=== PATIENT | female | born 1970 | race African-American/Black ===

== ENCOUNTER 2017-04-23 09:51 | Emergency (ER) | payer BC, OTHER ==
[~2017-04-23] VITALS: Ht 175.3 cm; Wt 83.9 kg
[~2017-04-23 09:51] MED LIST: CARV25TA PO; CARV6.252 PO; LISI2.5T PO; TAMO20TA PO
--- NOTE | 2017-04-23 11:26 | RAD ---
2 view chest 04/23/2017 Clinical indication: Cough and fever. Comparison: Chest 11/04/2012. Findings: Mild patchy opacities in the left lower lobe. Cardiac and mediastinal silhouettes are unremarkable. No pleural effusion or pneumothorax. There are bilateral scattered thoracic surgical clips. Impression: Left lower lobe patchy opacities, suggestive of pneumonia. Follow-up 2 view chest to assess for resolution is recommended.
[2017-04-23 11:30] LABS: INFLUENZA A PATIENT NEGATIVE (NEGATIVE); INFLUENZA B PATIENT NEGATIVE (NEGATIVE)
[2017-04-23] MEDS ORDERED: FLUT9.9S NS (11:36)
[2017-04-23] MEDS ORDERED: FLUT12AE IH (11:36)
[2017-04-23] MEDS ORDERED: SULF1TAB24 PO (11:36)
[2017-04-23] MEDS ORDERED: ALBU8.5H8 INH (11:36)
[2017-04-23 11:37] VITALS: BP 165/96
--- NOTE | 2017-04-23 11:37 | PHYS DOC ---
Past History Past Medical History: Cancer, Heart Disease, Hypertension Past Surgical History: Other Smoking: Non-smoker Alcohol Use: Occasionally Drug Use: None Adult General Chief Complaint Chief Complaint: COUGH HPI HPI Patient is a 46 year old F who presents with cough, nasal congestion and shortness of breath over the past 3-4 days. She feels that her symptoms are worse with activity and improved with relative rest. She also states that she has generalized body aches and chills. She feels that she has had a fever however she has not taken it at home. She has no other associated symptoms at this time and no other exacerbating or alleviating factors. Review of Systems Review of Systems Constitutional: Negative except history of present illness Eyes: Denies change in visual acuity, redness, or eye pain [] HENT: Negative except history of present illness Respiratory: Negative except in history of present illness Cardiovascular: No additional information not addressed in HPI [] GI: Denies abdominal pain, nausea, vomiting, bloody stools or diarrhea [] : Denies dysuria or hematuria [] Musculoskeletal: Denies back pain or joint pain [] Integument: Denies rash or skin lesions [] Neurologic: Denies headache, focal weakness or sensory changes [] Endocrine: Denies polyuria or polydipsia [] All other systems were reviewed and found to be within normal limits, except as documented in this note. Family History Family History No pertinent family medical history was reported Current Medications Current Medications Current medications were reviewed Current Medications Medications (Trade) Dose Ordered Sig/Camille Start Time Stop Time Status Last Admin Dose Admin Albuterol Sulfate (Ventolin) 10 mg 1X ONCE 04/23/17 11:40 04/23/17 11:41 04/23/17 11:21 2.5 MG Budesonide (Pulmicort) 0.5 mg 1X ONCE 04/23/17 11:40 04/23/17 11:41 04/23/17 11:21 0.5 MG Allergies Allergies Allergies Coded Allergies Type Severity Reaction Last Updated Verified latex Allergy Intermediate 12/05/13 Yes vancomycin Allergy Intermediate 12/05/13 Yes Penicillins Allergy Unknown 04/23/17 Yes Physical Exam Physical Exam Constitutional: Well developed, well nourished, no acute distress, non-toxic appearance. [] Ill-appearing HENT: Normocephalic, atraumatic, mild to moderate nasal mucosa erythema and edema Eyes: EOMI, conjunctiva normal, no discharge. [] Neck: Normal range of motion, no tenderness, supple, no stridor. [] Cardiovascular:Heart rate regular rhythm, no murmur [] Lungs & Thorax: Bilateral breath sounds clear to auscultation [] rhonchi noted in the left bases Abdomen: Bowel sounds normal, soft, no tenderness, no masses, no pulsatile masses. [] Skin: Warm, dry, no erythema, no rash. [] Extremities: No tenderness, no cyanosis, no clubbing, ROM intact, no edema. [] Neurologic: Alert and oriented X 3, normal motor function, normal sensory function, no focal deficits noted. [] Psychologic: Affect normal, judgement normal, mood normal. [] Current Patient Data Vital Signs Vital Signs Date Time Temp Pulse Resp B/P (MAP) Pulse Ox O2 Delivery O2 Flow Rate FiO2 04/23/17 09:57 99.0 93 20 97 Room Air Lab Results Laboratory Tests Test 04/23/17 10:50 Influenza Type A (Rapid) Negative (NEGATIVE) Influenza Type B (Rapid) Negative (NEGATIVE) EKG EKG [] Radiology/Procedures Radiology/Procedures Chest x-ray Impressions: Left lower lobe infiltrate Course & Med Decision Making Course & Med Decision Making Pertinent Labs and Imaging studies reviewed. (See chart for details) [] Dragon Disclaimer Dragon Disclaimer This electronic medical record was generated, in whole or in part, using a voice recognition dictation system. Departure Departure: Impression: Primary Impression: Acute upper respiratory infection Additional Impression: Pneumonia Disposition: 01 HOME, SELF-CARE Condition: STABLE Referrals: CULLEN BATES MD (PCP) Patient Instructions: Pneumonia, Adult, Upper Respiratory Infection, Adult Additional Instructions: Jaida was seen in the emergency department for cough and nasal congestion. No emergency medical condition was found on history or physical exam. She was found to have signs and symptoms of pneumonia as well as an upper respiratory infection. She was given a prescription for oral antibiotics as well as breathing treatments. She is advised to use nasal saline rinses regularly and was given a prescription for nasal steroid spray She is advised follow-up with her primary care doctor in the next 3-5 days for further management. Scripts Fluticasone Propionate (FLOVENT 110MCG HFA) 12 Gm Aer.w.adap 2 PUFF IH BID for 7 Days, #1 INHALER 2 Refills Prov: CULLEN SANTANA MD 04/23/17 Fluticasone Propionate (Flonase Allergy Relief) 9.9 Ml Kite.susp 1 SPRAYS NS BID for 7 Days, BOTTLE Prov: CULLEN SANTANA MD 04/23/17 Sulfamethoxazole/Trimethoprim (BACTRIM DS TABLET) 1 Each Tablet 1 TAB PO BID for 7 Days, #14 TAB Prov: CULLEN SANTANA MD 04/23/17 Albuterol Sulfate (PROAIR HFA INHALER) 8.5 Gm Hfa.aer.ad 1 PUFF INH PRN Q6HRS Y for SHORTNESS OF BREATH for 7 Days, INHALER 0 Refills Prov: CULLEN SANTANA MD 04/23/17 Problem Qualifiers Additional Impression: Pneumonia Pneumonia type: due to methicillin-sensitive Staphylococcus aureus (MSSA) Laterality: left Lung location: lower lobe of lung Qualified Codes: J15.211 - Pneumonia due to methicillin susceptible Staphylococcus aureus CULLEN SANTANA MD Apr 23, 2017 11:37
[2017-04-23] MEDS ORDERED: BUDESONIDE 0.5 MG/2 ML NEBU NEB ONE (11:40)
[2017-04-23] MEDS ORDERED: ALBUTEROL SULFATE 2.5 MG/3 ML NEBU. CONT NEB ONE (11:40)
[2017-04-23] MEDS ORDERED: SMZ/TMP 800/160MG TABLET. PO ONE (12:10)
== END 2017-04-23 11:56 | disposition home or self-care (01) ==
LOC: ER 09:51
DX: J18.9 Pneumonia, unspecified organism (principal); J06.9 Acute upper respiratory infection, unspecified; I11.9 Hypertensive heart disease without heart failure; Z88.0 Allergy status to penicillin; Z88.1 Allergy status to other antibiotic agents; Z91.040 Latex allergy status
CPT/HCPCS: 71046; 87804; 94640; 99285; J7613; J7626

== ENCOUNTER 2021-02-09 18:24 | Emergency (ER) | payer BC ==
[~2021-02-09] VITALS: Ht 175.3 cm; Wt 107.5 kg
[~2021-02-09 18:24] MED LIST changes: +ALBU2.5V8 INH; -CARV6.252 PO; +CARV6.2541 PO; +FLUT12AE IH; +FLUT9.9S NS; -LISI2.5T PO; +LISI2.5T12 PO; +SULF1TAB24 PO
[2021-02-09] MEDS ORDERED: IV NORMAL SALINE 1,000ML 1,000 ML IV ONE (18:45)
[2021-02-09] MEDS ORDERED: IOHEXOL 350 MG/ML 100 ML VIAL. IV ONE (19:00)
--- NOTE | 2021-02-09 19:29 | PHYS DOC ---
Past History Past Medical History: Cancer, Heart Disease, Hypertension Past Surgical History: Hysterectomy, Oophorectomy, Other Additional Past Surgical Histo: BILAT MASTECTOMY 2012 Smoking: Non-smoker Alcohol Use: Occasionally Drug Use: None General Adult EDM: Chief Complaint: SHORTNESS OF BREATH HPI: HPI: Patient is a [age] year old [sex] who presents with [] Review of Systems: Review of Systems: Constitutional: Denies fever or chills Eyes: Denies redness or eye pain HENT: Denies nasal congestion or sore throat Respiratory: Denies cough or shortness of breath Cardiovascular: Denies chest pain or palpitations GI: Denies abdominal pain, nausea, or vomiting : Denies dysuria or hematuria Musculoskeletal: Denies back pain or joint pain Integument: Denies rash or skin lesions Neurologic: Denies headache, focal weakness or sensory changes Complete systems were reviewed and found to be within normal limits, except as documented in this note. Current Medications: Current Meds: Current Medications Medications (Trade) Dose Ordered Sig/Camille Start Time Stop Time Status Last Admin Dose Admin Iohexol (Omnipaque 350 Mg/ml) 100 ml 1X ONCE 02/09/21 19:00 02/09/21 19:01 DC Sodium Chloride 1,000 ml @ 1,000 mls/hr 1X ONCE 02/09/21 18:45 02/09/21 19:44 Allergies: Allergies: Allergies Coded Allergies Type Severity Reaction Last Updated Verified latex Allergy Intermediate 02/09/21 Yes vancomycin Allergy Intermediate 02/09/21 Yes Penicillins Allergy Unknown 02/09/21 Yes Physical Exam: PE: Constitutional: Well developed, well nourished, no acute distress, non-toxic appearance HENT: Normocephalic, atraumatic Eyes: PERRL, EOMI, conjunctiva normal, no discharge Neck: Normal range of motion, no tenderness, supple Lungs & Thorax: No respiratory distress, equal chest rise and fall Abdomen: Soft, no tenderness Skin: Warm, dry, no erythema, no rash Back: No tenderness, no CVA tenderness Extremities: No tenderness, ROM intact, no edema Neurologic: Alert and oriented X 3, normal motor function, normal sensory function, no focal deficits noted Psychologic: Affect normal, judgment normal Current Patient Data: Vital Signs: Vital Signs Date Time Temp Pulse Resp B/P (MAP) Pulse Ox O2 Delivery O2 Flow Rate FiO2 02/09/21 18:37 98.4 81 22 143/100 (114) 97 Room Air EKG: EKG: @1851 NSR at 79bpm, NO ST elevation, QRS 106ms, QT/QTc 416/478ms, baseline artifact noted primarily to V4, nonspecific t wave inversion III Radiology/Procedures: Radiology/Procedures: PROCEDURE: CT ANGIOGRAPHY CHEST Exam: CT of chest with contrast INDICATION: Short of air, TECHNIQUE: Sequential axial images through the chest obtained following the a dministration of 100 mL of Isovue-370 IV contrast. Sagittal and coronal reformatted images were reconstructed from the axial data and reviewed. 3-D reformatted images were reconstructed from the axial data and reviewed. Exposure: One or more of the following in the visualized dose reduction techniques were utilized for this examination: 1. Automated exposure control 2. Adjustment of the MA and/or KV according to patient size 3. Use of iterative of reconstructive technique Comparisons: Chest x-ray same day FINDINGS: Visualized portions of the thyroid are unremarkable. There numerous prominent mildly enlarged bilateral hilar, pretracheal, prevascular lymph nodes. Heart size is normal. No pericardial effusion. Thoracic aorta has normal course and caliber. Pulmonary artery is not enlarged. No pulmonary embolus identified within the main, lobar or segmental pulmonary arteries. Airways are patent. Innumerable pulmonary nodules are noted diffusely throughout the lungs. No consolidation or pneumothorax. Moderate-sized right pleural effusion. There are several vague hypoattenuating lesions noted within the liver which are incompletely characterized on this study. Trace amount of free fluid in the visualized upper abdomen. No suspicious osseous lesions or acute fractures. IMPRESSION: 1. No pulmonary embolus identified within the main, lobar or segmental pulmonary arteries. 2. Innumerable pulmonary nodules likely representing diffuse metastatic disease. Correlate with malignancy history. 3. Moderate-sized right pleural effusion. Electronically signed by: Delisa Raza MD (02/09/2021 8:10 PM) [facility] Heart Score: C/O Chest Pain: N/A Course & Med Decision Making: Course & Med Decision Making Pertinent Labs and Imaging studies reviewed. (See chart for details) Patient stable for discharge with outpatient follow-up with PCP. Discussed findings and plan with patient, who acknowledges understanding and agreement. Vivian Disclaimer: Vivian Disclaimer: This electronic medical record was generated, in whole or in part, using a voice recognition dictation system. Departure Departure: Impression: Primary Impression: Shortness of breath Additional Impressions: Pleural effusion Pulmonary nodules Disposition: HOME / SELF CARE / HOMELESS Condition: STABLE Referrals: CULLEN BATES MD (PCP) Patient Instructions: Pleural Effusion, Pulmonary Nodule, [id number], Shortness of Breath, [id number] Additional Instructions: Please follow up with your doctor and/or oncology for further management/treatment. JENNIFER SOSA DO Feb 09, 2021 19:29
[2021-02-09 19:49] LABS: CALCIUM 9.2 mg/dL (8.5-10.1); CREATININE 0.8 mg/dL (0.6-1.0); GFR 91.5; POTASSIUM 3.6 mmol/L (3.5-5.1)
[2021-02-09 19:50] LABS: BASO % 1 % (0-3); EOS # 0.1 x10^3/uL (0.0-0.7); EOS % 2 % (0-3); HEMATOCRIT 36.3 % (36.0-47.0); HEMOGLOBIN 11.8 g/dL (12.0-15.5); LYMPH # 2.2 x10^3/uL (1.0-4.8); LYMPH % 36 % (24-48); MEAN CORPUSCULAR HEMOGLOBIN 28 pg (25-35); MEAN CORPUSCULAR HGB CONC 33 g/dL (31-37); MEAN CORPUSCULAR VOLUME 87 fL (79-100); MONO # 0.6 x10^3/uL (0.0-1.1); MONO % 9 % (0-9); NEUT # 3.3 x10^3uL (1.8-7.7); NEUT % 53 % (31-73); PLATELET COUNT 247 x10^3/uL (140-400); RED CELL DISTRIBUTION WIDTH 14.5 % (11.5-14.5); WHITE BLOOD COUNT 6.3 x10^3/uL (4.0-11.0)
[2021-02-09 20:06] LABS: ALBUMIN 3.4 g/dL (3.4-5.0); ALBUMIN/GLOBULIN RATIO 0.8 (1.0-1.7); TOTAL BILIRUBIN 0.3 mg/dL (0.2-1.0); TOTAL PROTEIN 7.8 g/dL (6.4-8.2)
--- NOTE | 2021-02-09 20:12 | RAD ---
Exam: CT of chest with contrast INDICATION: Short of air, TECHNIQUE: Sequential axial images through the chest obtained following the administration of 100 mL of Isovue-370 IV contrast. Sagittal and coronal reformatted images were reconstructed from the axial data and reviewed. 3-D reformatted images were reconstructed from the axial data and reviewed. Exposure: One or more of the following in the visualized dose reduction techniques were utilized for this examination: 1. Automated exposure control 2. Adjustment of the MA and/or KV according to patient size 3. Use of iterative of reconstructive technique Comparisons: Chest x-ray same day FINDINGS: Visualized portions of the thyroid are unremarkable. There numerous prominent mildly enlarged bilater al hilar, pretracheal, prevascular lymph nodes. Heart size is normal. No pericardial effusion. Thoracic aorta has normal course and caliber. Pulmonar y artery is not enlarged. No pulmonary embolus identified within the main, lobar or segmental pulmona ry arteries. Airways are patent. Innumerable pulmonary nodules are noted diffusely throughout the lungs. No consol idation or pneumothorax. Moderate-sized right pleural effusion. There are several vague hypoattenuating lesions noted within the liver which are incompletely charact erized on this study. Trace amount of free fluid in the visualized upper abdomen. No suspicious osseous lesions or acute fractures. IMPRESSION: 1. No pulmonary embolus identified within the main, lobar or segmental pulmonary arteries. 2. Innumerable pulmonary nodules likely representing diffuse metastatic disease. Correlate with kathleen gnancy history. 3. Moderate-sized right pleural effusion. Electronically signed by: Delisa Raza MD (02/09/2021 8:10 PM) [facility]
[2021-02-09 20:35] LABS: BILIRUBIN,URINE NEG (NEG); CLARITY,URINE CLEAR; COLOR,URINE YELLOW; GLUCOSE,URINE NEG (NEG); NITRITE,URINE NEG (NEG); UROBILINOGEN,URINE 0.2 mg/dL (0.2 mg/dL)
[2021-02-09 20:36] LABS: BACTERIA,URINE 0 /HPF (0-FEW); RBC,URINE OCC /HPF (0-2); SQUAMOUS EPITHELIAL CELL,UR OCC /LPF; WBC,URINE OCC /HPF (0-4)
[2021-02-09 21:15] VITALS: BP 132/81
--- NOTE | 2021-02-10 04:28 | EKG ---
[address] [address] Test Date: 2021-02-09 Test Time: 18:51:01 Pat Name: ADA ANTHONY Department: Room: Gender: F Bilingual Medical Assistant: MARLENA : 1970 Requested By: JENNIFER SOSA Order Number: [id number] Reading MD: Saurabh Rudd Measurements Intervals [place] Rate: 79 P: -54 RI: 112 QRS: -24 QRSD: 106 T: 0 QT: 416 QTc: 478 Interpretive Statements SINUS RHYTHM LEFTWARD AXIS PROLONGED QT RI6.02 No previous ECG available for comparison Electronically Signed On 02-14-2021 10:06:35 [employer] by Saurabh Rudd
== END 2021-02-09 21:18 | disposition home or self-care (01) ==
LOC: ER 18:24
DX: J90 Pleural effusion, not elsewhere classified (principal); R91.8 Other nonspecific abnormal finding of lung field; R06.02 Shortness of breath; I11.9 Hypertensive heart disease without heart failure; Z20.822 Contact with and (suspected) exposure to COVID-19; Z91.040 Latex allergy status; Z88.1 Allergy status to other antibiotic agents; Z88.0 Allergy status to penicillin
CPT/HCPCS: 71275; 80053; 81001; 82553; 83605; 83880; 84484; 85025; 87426; 93005; 96360; 99285; C9803; J7030; Q9967; U0003

== ENCOUNTER 2021-06-18 19:25 | Emergency (ER) | payer BC ==
[~2021-06-18] VITALS: Ht 175.3 cm; Wt 107.5 kg
[2021-06-18] MEDS ORDERED: ONDANSETRON PF 4 MG/2 ML VIAL. ONE (19:49)
--- NOTE | 2021-06-18 19:50 | PHYS DOC ---
Past History Past Medical History: Cancer, Heart Disease, Hypertension (SOCORRO BOWENS APRN) Past Surgical History: Hysterectomy, Oophorectomy, Other Additional Past Surgical Histo: BILAT MASTECTOMY 2013 (SOCORRO BOWENS APRN) Smoking: Non-smoker Alcohol Use: Occasionally Drug Use: None (SOCORRO BOWENS APRN) General Adult EDM: Chief Complaint: NAUSEA/VOMITING/DIARRHEA HPI: HPI: Patient is a 51-year-old female who presents with nausea/vomiting/diarrhea for the last 2 weeks. Patient is currently being treated for uterine cancer. Patient's last chemo treatment was 2 weeks ago and she started a new drug. Patient reports that the nausea is worse at nighttime. "Every time I lay down I start getting sick to my stomach". Afebrile. Denies pain. History of hypertension, hyperlipidemia. (SOCORRO BOWENS APRN) Review of Systems: Review of Systems: ROS At least 10 ROS systems have been reviewed and are negative except as documented in the HPI. General: Negative except as outlined in HPI above. Skin: Negative except as outlined in HPI above. HEENT: Negative except as outlined in HPI above. Neck: Negative except as outlined in HPI above. Respiratory: Negative except as outlined in HPI above.. Cardiovascular: Negative except as outlined in HPI above. Abdomen: Negative except as outlined in HPI above. : Negative except as outlined in HPI above. Back/MSK: Negative except as outlined in HPI above. Neuro: Negative except as outlined in HPI above. Psych: Negative except as outlined in HPI above. (SOCORRO BOWENS APRN) Allergies: Allergies: Allergies Coded Allergies Type Severity Reaction Last Updated Verified latex Allergy Intermediate 02/09/21 Yes vancomycin Allergy Intermediate 02/09/21 Yes Penicillins Allergy Unknown 02/09/21 Yes (SOCORRO BOWENS APRN) Physical Exam: PE: Constitutional: Well developed, well nourished, no acute distress HENT: bilateral external ears normal, oropharynx moist, no oral exudates Eyes: PERRLA, conjunctiva normal, no discharge. [] Neck: Normal range of motion, no tenderness, supple Cardiovascular:Heart rate regular rhythm, no murmur [] Lungs & Thorax: Bilateral breath sounds clear to auscultation [] Abdomen: Bowel sounds normal, soft, no tenderness Skin: Warm, dry, no erythema, no rash. [] Back: No tenderness, no CVA tenderness. [] Extremities: No tenderness, range of motion is intact, no edema Neurologic: Alert and oriented X 3, normal motor function, normal sensory function Psychologic: Affect normal, judgement normal, mood normal. [] (SOCORRO BOWENS APRN) EKG: EKG: [] (SOCORRO BOWENS APRN) Radiology/Procedures: Radiology/Procedures: [] (SOCORRO BOWENS APRN) Heart Score: C/O Chest Pain: No Risk Factors: Risk Factors: DM, Current or recent (<one month) smoker, HTN, HLP, family history of CAD, obesity. Risk Scores: Score 0 - 3: 2.5% MACE over next 6 weeks - Discharge Home Score 4 - 6: 20.3% MACE over next 6 weeks - Admit for Clinical Observation Score 7 - 10: 72.7% MACE over next 6 weeks - Early Invasive Strategies (SOCORRO BOWENS APRN) Course & Med Decision Making: Course & Med Decision Making Pertinent Labs and Imaging studies reviewed. (See chart for details) [] 51-year-old female presents with nausea/vomiting/diarrhea for the last 2 weeks. Patient started a new chemo drug for uterine cancer 2 weeks ago and has made her very nauseated. Work-up in ER consisted of labs, UA. Patient given NS bolus to help with hydration. Zofran given for nausea and vomiting. Patient's denying pain. WBC, 2.5. All other labs are unremarkable. Patient's nausea and vomiting is due to chemo treatments. Patient still re porting nausea. Patient given Compazine. Patient is concerned about being nauseated at home. Sending patient home with a starter pack of Zofran and a prescription to [facility] that they will build to draft roller picker tomorrow. Advised patient to call her physician again tomorrow and find out if there are alternate medications available to treat her symptoms. Discussed return precautions in l brianne. Patient verbalized understanding of discharge instructions. (SOCORRO BOWENS APRN) Vivian Disclaimer: Vivian Disclaimer: This electronic medical record was generated, in whole or in part, using a voice recognition dictation system. (SOCORRO BOWENS APRN) Departure Departure: Impression: Primary Impression: Nausea vomiting and diarrhea Disposition: HOME / SELF CARE / HOMELESS Condition: STABLE Referrals: CULLEN BATES MD (PCP) Patient Instructions: Nausea and Vomiting, [id number] Additional Instructions: You are seen in the emergency room for nausea and vomiting. You were given Zofran, fluids. All of your labs were EMERGENCY DEPARTMENT GENERAL DISCHARGE INSTRUCTIONS Thank you for coming to [facility] (ED) today and trusting us with you care. We trust that you had a positivie experience in our Emergency Department. If you wish to speak to the department management, you may call the director at [phone]. YOUR FOLLOW UP INSTRUCTIONS ARE FOLLOWS: 1. Do you have a private Doctor? If you do not have a private doctor, please ask for a resource list of physicians or clinics that may be able to assist you with follow up care. 2. The Emergency Physician has interpreted your x-rays. The X-Ray specialist will also review them. If there is a change in the findings, you will be notified in 48 hours when at all possible. 3. A lab test or culture has been done, your results will be reviewed and you will be notified if you need a change in treatment. ADDITIONAL INSTRUCTIONS AND INFORMATION: 1. Your care today has been supervised by a physician who is specially trained in emergency care. Many problems require more than one evaluation for a complete diagnosis and treatment. We recommend that you schedule your follow up appointment as recommended to ensure complete treatment of you illness or injury. If you are unable to obtain follow up care and continue to have a problem, or if your condition worsens, we recommend that you return to the ED. 2. We are not able to safely determine your condition over the phone nor are we able to give sound medical advice over the phone. For these safety reasons, if you call for medical advice we will ask you to come to the ED for further evaluation. 3. If you have any questions regarding these discharge instructions please call the ED at [phone]. SAFETY INFORMATION: In the interest of safety, wellness, and injury prevention; we encourage you to wear your sealbelt, if you smoke; quite smoking, and we encourage family to use a p rotective helmet for bicycling and other sporting events that present an increased risk for head injury. IF YOUR SYMPTOMS WORSEN OR NEW SYMPTOMS DEVELOP, OR YOU HAVE CONCERNS ABOUT YOUR CONDITION; OR IF YOUR CONDITION WORSENS WHILE YOU ARE WAITING FOR YOUR FOLLOW UP APPOINTMENT; EITHER CONTACT YOUR PRIMARY CARE DOCTOR, THE PHYSICIAN WHOSE NAME AND NUMBER YOU WERE GIVEN, OR RETURN TO THE ED IMMEDIATELY. Scripts Prochlorperazine Maleate (Compazine) 10 Mg Tablet 1 TAB PO Q6HRS for nausea for 7 Days, #28 TAB 0 Refills Prov: KWANSOCORRO HEWITT 06/18/21 Promethazine Hcl (PROMETHAZINE HCL) 25 Mg Supp.rect 2-Apr SUPP RC QID for nausea for 3 Days, #20 SUPP 0 Refills Prov: SOCORRO BOWENS APRN 06/18/21 Dragon Disclaimer This chart was dictated in whole or in part using Voice Recognition software in a busy, high-work load, and often noisy Emergency Department environment. It may contain unintended and wholly unrecognized errors or omissions. (HERMINIA MARTINEZ MD) Attending Signature Attending Signature I have participated in the care of this patient and I have reviewed and agree with all pertinent clinical information above including history, exam, and juan mmendations. (HERMINIA MARTINZE MD) SOCORRO BOWENS APRN Jun 18, 2021 19:50 HERMINIA MARTINEZ MD Jun 19, 2021 00:41
[2021-06-18] MEDS ORDERED: ONDANSETRON PF 4 MG/2 ML VIAL. IVP ONE (20:00)
[2021-06-18] MEDS ORDERED: IV NORMAL SALINE 1,000ML 1,000 ML IV ONE (20:00)
[2021-06-18] MEDS ORDERED: PROCHLORPERAZINE 10 MG/2 ML VIAL. IV ONE (20:30)
[2021-06-18 20:34] LABS: BASO % 1 % (0-3); EOS % 1 % (0-3); HEMATOCRIT 33.3 % (36.0-47.0); HEMOGLOBIN 10.8 g/dL (12.0-15.5); LYMPH # 1.5 x10^3/uL (1.0-4.8); LYMPH % 59 % (24-48); MEAN CORPUSCULAR HEMOGLOBIN 29 pg (25-35); MEAN CORPUSCULAR HGB CONC 33 g/dL (31-37); MEAN CORPUSCULAR VOLUME 90 fL (79-100); MONO # 0.7 x10^3/uL (0.0-1.1); MONO % 27 % (0-9); NEUT # 0.3 x10^3uL (1.8-7.7); NEUT % 13 % (31-73); PLATELET COUNT 225 x10^3/uL (140-400); RED BLOOD COUNT 3.71 x10^6/uL (3.50-5.40); RED CELL DISTRIBUTION WIDTH 19.9 % (11.5-14.5); WHITE BLOOD COUNT 2.5 x10^3/uL (4.0-11.0)
[2021-06-18 20:38] LABS: CALCIUM 8.6 mg/dL (8.5-10.1); CREATININE 0.8 mg/dL (0.6-1.0); GFR 91.1; POTASSIUM 3.8 mmol/L (3.5-5.1)
[2021-06-18 20:43] LABS: ALBUMIN 3.1 g/dL (3.4-5.0); ALBUMIN/GLOBULIN RATIO 0.9 (1.0-1.7); TOTAL BILIRUBIN 0.2 mg/dL (0.2-1.0); TOTAL PROTEIN 6.7 g/dL (6.4-8.2)
[2021-06-18] MEDS ORDERED: PROM25SU33 RC (20:53)
[2021-06-18] MEDS ORDERED: PROC10TA57 PO (20:53)
[2021-06-18] MEDS ORDERED: ONDANSETRON 4MG ODT 4TABLET STARTPACK. PO ONE (21:00)
[2021-06-18 21:04] LABS: % BASOS 1 % (0-3); % EOS 1 % (0-5); % LYMPHS 72 % (24-48); % MONOS 17 % (0-10); % SEGS 9 % (35-66); PLT ESTIMATE ADEQUATE (ADEQUATE)
[2021-06-18 21:05] LABS: ANISOCYTOSIS SLIGHT
[2021-06-18 21:07] VITALS: BP 151/91
== END 2021-06-18 21:07 | disposition home or self-care (01) ==
LOC: ER 19:25
DX: R11.2 Nausea with vomiting, unspecified (principal); R19.7 Diarrhea, unspecified; I11.9 Hypertensive heart disease without heart failure; E78.5 Hyperlipidemia, unspecified; Z91.040 Latex allergy status; Z88.1 Allergy status to other antibiotic agents; Z88.0 Allergy status to penicillin
CPT/HCPCS: 36415; 80053; 85007; 85025; 96361; 96374; 96375; 99284; J0780; J2405; J7030; Q0162

== ENCOUNTER → 2021-07-14 | Outpatient (CLI) | payer BC ==
[2021-06-18 21:07] VITALS: BP 151/91
[~2021-07-14] MED LIST changes: +PROC10TA57 PO; +PROM25SU33 RC
--- NOTE | 2021-07-14 16:28 | RAD ---
Study: XR ABDOMEN 1V Indication: Constipation. Comparison: CT abdomen/pelvis 05/03/2015 Findings: Nonobstructive bowel gas pattern. Small volume well-formed stool scattered throughout the colon. Focu s of increased density projecting over the left iliac wing adjacent to the SI joint measuring 1.7 cm transverse. Small focus of increased density projecting over the right inferior pubic ramus. Surgical clips projecting over the lower lumbar spine. Incompletely assessed abnormalities at the lower lungs to include a small pleural effusion on the right. Impression: 1. Nonobstructive bowel gas pattern. Small volume colonic stool burden. 2. Incompletely evaluated lower lungs with reticulonodular densities and a small right pleural effusi on. 3. Focus of increased density projecting over the left iliac wing and a smaller focus projecting over the right inferior pubic ramus. The exact location of these findings is uncertain but sclerotic meta stases are possible given the appearance of the lungs on 02/09/2021. Electronically signed by: RAI ALLAN MD (07/14/2021 4:26 PM) [facility]
== END ==
LOC: RAD 12:38
PROVIDERS: ATTEND Obstetrics & Gynecology Gynecologic Oncology
DX: R11.14 Bilious vomiting (principal); J90 Pleural effusion, not elsewhere classified
CPT/HCPCS: 74018